=== PATIENT | male | born 1995 | race African-American/Black ===

== ENCOUNTER 2017-07-09 19:11 | Emergency (ER) | payer OTHER, MEDICAID ==
[~2017-07-09] VITALS: Ht 182.9 cm; Wt 76.0 kg
[2017-07-09 19:15] VITALS: BP 113/73
== END 2017-07-09 22:15 | disposition left against medical advice (07) ==
LOC: ER 21:03
DX: Z53.21 Procedure and treatment not carried out due to patient leaving prior to being seen by health care provider (principal)
CPT/HCPCS: 93005